=== PATIENT | male | born 1980 | race Caucasian/White ===

== ENCOUNTER 2017-09-22 14:20 | Emergency (ER) | payer BC ==
[2017-09-22] MEDS ORDERED: Famotidine IV* 10 MG/ML 2 ML (20 mg) IV SLOW PU ONE (14:28)
[2017-09-22] MEDS ORDERED: diPHENhydraMINE PO* 50 MG PO ONE (14:28)
[2017-09-22] MEDS ORDERED: methylPREDNISolone 125 MG* 2 ML VIAL IV ONE (14:28)
[2017-09-22] MEDS ORDERED: diPHENhydraMINE IV* 50 MG/ML 1 ml VIAL (BENADRYL) ONE (14:30)
[2017-09-22 16:52] VITALS: BP 115/68
--- NOTE | 2017-09-22 18:19 | ED ---
Summer Early Julia, scribed for Dario Schrader MD on 09/22/17 at 1611 . Allergic Reaction/Systemic - HPI Summary HPI Summary: Patient is a 37 year old male presenting to [facility] with a chief complaint of allergic reaction since this morning. Patient reports rhinorrhea and pruritic face and bilateral UE. Patient denies SOB or trouble swallowing. Patients symptoms were unchanged by Benadryl taken this morning. Patient has a cat allergy and states that he has had similar symptoms previously when exposed to cats. Symptoms alleviated by nothing. - History of Current Complaint Chief Complaint: EDAllergicReaction Hx Obtained From: Patient Onset/Duration: Started hours ago - began this morning Timing: Constant Pain Intensity: 0 Pain Scale Used: 0-10 Numeric Location: Other - face and BUE Character: Pruritus Aggravating Factor(s): Other - Cats Alleviating Factor(s): Nothing Associated Signs And Symptoms: Positive: Other: - rhinorrhea and pruritic face and BUE. Patient denies SOB or trouble swallowing. - Allergies/Home Medications Allergies/Adverse Reactions: Allergies Allergy/AdvReac Type Severity Reaction Status Date / Time No Known Allergies Allergy Verified 09/22/17 14:30 PMH/Surg Hx/FS Hx/Imm Hx Endocrine/Hematology History: Denies: Hx Diabetes Respiratory History: Reports: Other Respiratory Problems/Disorders - Hx Cat Allergy Infectious Disease History: No Infectious Disease History: Denies: Traveled Outside the [place] in Last 30 Days - Family History Known Family History: Negative: Diabetes - Social History Alcohol Use: Occasionally Hx Substance Use: No Substance Use Type: Reports: None Hx Tobacco Use: No Smoking Status (MU): Never Smoked Tobacco Review of Systems Constitutional: Other - pruritic face and bilat UE Negative: Fever Positive: Nasal Discharge, Other - Negative trouble swallowing Negative: Shortness Of Breath Positive: Rash - face and BUE All Other Systems Reviewed And Are Negative: Yes Physical Exam - Summary Physical Exam Summary: Appearance: The patient is well-nourished in no acute distress and in no acute pain. Skin: The skin is warm and dry and skin color reflects adequate perfusion. Erythematic rash on face. HEENT: The head is normocephalic and atraumatic. The pupils are equal and reactive. The conjunctivae are clear and without drainage. Nares are patent and without drainage. Mouth reveals moist mucous membranes and the throat is without erythema and exudate. The external ears are intact. The ear canals are patent and without drainage. The tympanic membranes are intact. Neck: the neck is supple with full range of motion and non-tender. There are no carotid bruits. There is no neck vein distension. Respiratory: Chest is non-tender. Lungs are clear to auscultation and breath sounds are symmetrical and equal. Cardiovascular: Patient is tachycardic. There is no murmur or rub auscultated. There is no peripheral edema and pulses are symmetrical and equal. Abdomen: The abdomen is soft and non-tender. There are normal bowel sounds heard in all four quadrants and there is no organomegaly palpated. Musculoskeletal: There is no back tenderness noted. Extremities are non-tender with full range of motion. There is good capillary refill. There is no peripheral edema or calf tenderness elicited. Neurological: Patient is alert and oriented to person, place and time. The patient has symmetrical motor strength in all four extremities. Cranial nerves are grossly intact. Deep tendon reflexes are symmetrical and equal in all four extremities. Psychiatric: Patient is anxious. Triage Information Reviewed: Yes Vital Signs On Initial Exam: Initial Vitals Temp Pulse Resp BP Pulse Ox 97.2 F 153 28 131/106 97 09/22/17 14:21 09/22/17 14:21 09/22/17 14:21 09/22/17 14:21 09/22/17 14:21 Vital Signs Reviewed: Yes Skin: Positive: Erythema @ - face Cardiovascular: Positive: Tachycardia Psychiatric: Positive: Anxious - Agusto Coma Scale Coma Scale Total: 15 Diagnostics - Vital Signs Vital Signs Temp Pulse Resp BP Pulse Ox 09/22/17 15:58 97.8 F 110 16 115/83 96 09/22/17 15:20 111 20 129/80 96 09/22/17 14:21 97.2 F 153 28 131/106 97 - Laboratory Lab Statement: Any lab studies that have been ordered have been reviewed, and results considered in the medical decision making process. Allergic Reaction Course/Dx - Course Course Of Treatment: Mr. Limon presented very anxious with diffuse itching and a mild facial and upper chest rash after being exposed to car dander. He has had a similar reaction in the past. He improved with medications here. He did not require epinephrine. His reaction was mild and I don't think he needs an epipen. - Diagnoses Provider Diagnoses: Allergic reaction Discharge - Discharge Plan Condition: Stable Disposition: HOME Patient Education Materials: General Allergic Reaction (ED) Referrals: [facility] - Kamaljit CRUZ [Primary Care Provider] - 3 Days Additional Instructions: RETURN TO THE EMERGENCY DEPT FOR CHANGING OR WORSENING SYMPTOMS. The documentation as recorded by the Summer mitchell Julia accurately reflects the service I personally performed and the decisions made by me, Dario Schrader MD.
== END 2017-09-22 16:50 | disposition home or self-care (01) ==
LOC: ED 14:20
DX: T78.40XA Allergy, unspecified, initial encounter (principal); R21 Rash and other nonspecific skin eruption; X58.XXXA Exposure to other specified factors, initial encounter
CPT/HCPCS: 96374; 96375; 99282; J1200; J2930

== ENCOUNTER 2019-01-03 13:05 | Emergency (ER) | payer SELFPAY ==
[2019-01-03 15:07] VITALS: BP 140/89
--- NOTE | 2019-01-03 16:15 | ED ---
Lower Extremity - HPI Summary HPI Summary: Patient is a 38-year-old male presenting to the ED with pain to the right knee and right ankle since 1.5 weeks. 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 He remains ambulatory. Symptoms are worse with ambulation and better with rest. Pain is rated a 5/10 in both right knee and right ankle. He feels as though the right knee has laxity to it and he is concerned over a ligament tear. Denies any swelling, ecchymosis, erythema, warmth. He has never injured the right knee or right ankle in the past. He has not taken any medication for relief. He states he is homeless and has been walking on it frequently which is added to his symptoms. - History of Current Complaint Chief Complaint: EDExtremityLower Stated Complaint: KNEE INJURY PER PT Time Seen by Provider: 01/03/19 13:08 Hx Obtained From: Patient Mechanism Of Injury: Twisted Onset/Duration: Weeks Severity Initially: Moderate Severity Currently: Moderate Pain Intensity: 7 Pain Scale Used: 0-10 Numeric Timing: Constant Location: Is Discrete @ - right knee and right ankle Associated Signs And Symptoms: Positive: Negative. Negative: Swelling, Redness , Weakness, Dizziness Aggravating Factor(s): Standing, Ambulation Alleviating Factor(s): Rest Able to Bear Weight: Yes - Risk Factors Gout Risk Factors: Negative DVT Risk Factors: Negative Septic Arthritis Risk Factor: Negative - Allergies/Home Medications Allergies/Adverse Reactions: Allergies Allergy/AdvReac Type Severity Reaction Status Date / Time No Known Allergies Allergy Verified 01/03/19 13:10 Home Medications: Home Medications NK [No Home Medications Reported] 01/03/19 [History Confirmed 01/03/19] PMH/Surg Hx/FS Hx/Imm Hx Previously Healthy: Yes Endocrine/Hematology History: Denies: Hx Diabetes Respiratory History: Reports: Other Respiratory Problems/Disorders - Hx Cat Allergy - Immunization History Hx Pertussis Vaccination: No Immunizations Up to Date: Yes Infectious Disease History: No Infectious Disease History: Denies: Traveled Outside the [place] in Last 30 Days - Family History Known Family History: Negative: Diabetes - Social History Occupation: Unemployed Lives: Alone - homeless Alcohol Use: None Hx Substance Use: No Substance Use Type: Reports: None Hx Tobacco Use: No Smoking Status (MU): Never Smoked Tobacco Review of Systems Constitutional: Negative Negative: Fever, Chills, Fatigue, Skin Diaphoresis Negative: Palpitations, Chest Pain Negative: Shortness Of Breath, Cough Positive: Arthralgia - right knee and right ankle pain Negative: Rash, Bruising Neurological: Negative All Other Systems Reviewed And Are Negative: Yes Physical Exam Triage Information Reviewed: Yes Vital Signs On Initial Exam: Initial Vitals Temp Pulse Resp BP Pulse Ox 98.2 F 97 18 112/92 97 01/03/19 13:06 01/03/19 13:06 01/03/19 13:06 01/03/19 13:06 01/03/19 13:06 Vital Signs Reviewed: Yes Appearance: Positive: Well-Appearing, Well-Nourished Skin: Positive: Warm, Skin Color Reflects Adequate Perfusion Head/Face: Positive: Normal Head/Face Inspection Eyes: Positive: EOMI, Conjunctiva Clear Neck: Positive: Supple, No Lymphadenopathy Respiratory/Lung Sounds: Positive: Clear to Auscultation, Breath Sounds Present Cardiovascular: Positive: Pulses are Symmetrical in both Upper and Lower Extremities Musculoskeletal: Positive: Pain @ - right ankle and right knee pain Neurological: Positive: Speech Normal Psychiatric: Positive: Affect/Mood Appropriate AVPU Assessment: Alert Diagnostics - Vital Signs Vital Signs Temp Pulse Resp BP Pulse Ox 01/03/19 15:07 98.7 F 84 18 140/89 95 01/03/19 13:06 98.2 F 97 18 112/92 97 - Laboratory Lab Statement: Any lab studies that have been ordered have been reviewed, and results considered in the medical decision making process. Lower Extremity Course/Dx - Course Course Of Treatment: X-ray of the right knee and right ankle obtained. X-ray shows no acute findings, x-ray of the right ankle shows soft tissue swelling to the lateral side with no obvious signs of fracture or strain otherwise. On physical examination, anterior and posterior drawer tests both negative. Negative Pat's. Patient able to ambulate well. There is no swelling or ecchymosis noted. The ankle appears well, no ecchymosis noted, no swelling is seen, patient is able to dorsiflex and plantar flex without discomfort. Juan wrap to the right knee and right ankle. Patient tolerated well. I have encouraged ibuprofen, rest and ice. He states he is unable to do this as he is homeless. He will follow up with orthopedics next week. - Diagnoses Provider Diagnoses: Right knee pain, Right ankle strain Discharge - Sign-Out/Discharge Documenting (check all that apply): Patient Departure Patient Received Moderate/Deep Sedation with Procedure: No - Discharge Plan Condition: Stable Disposition: HOME Patient Education Materials: Ankle Strain (ED) Referrals: Jim Treviño MD [Medical Doctor] - No Primary Care Phys,[facility] [Primary Care Provider] - Additional Instructions: Please follow up with orthopedics Ibuprofen 600mg three times daily as needed for pain and inflammation - Billing Disposition and Condition Condition: STABLE Disposition: Home
== END 2019-01-03 15:07 | disposition home or self-care (01) ==
LOC: ED 13:05
DX: M25.561 Pain in right knee (principal); S96.911A Strain of unspecified muscle and tendon at ankle and foot level, right foot, initial encounter; Y35.811A Legal intervention involving manhandling, law enforcement official injured, initial encounter; Y92.149 Unspecified place in prison as the place of occurrence of the external cause; Z59.0 Homelessness
CPT/HCPCS: 99282